=== PATIENT | female | born 1995 | race Caucasian/White ===

== ENCOUNTER → 2018-07-04 | Outpatient (CLI) | payer BC, OTHER | LOC: COL.CARD 12:00 | DX: R00.2 Palpitations (principal) ==

== ENCOUNTER 2021-10-12 08:46 | Inpatient (IN) | payer BC ==
[~2021-10-12] VITALS: Ht 165.1 cm; Wt 99.5 kg
[2021-10-13] VITALS (7 sets, daily range): BP systolic 92–129; BP diastolic 54–79; PULSE 96–107; TEMP 97.8
--- NOTE | 2021-10-13 20:00 | NUR ---
1999- PATIENT AND SPOUSE AMBULATORY TO THE UNIT. ORIENTATED TO ROOM AND CHANGED INTO CLEAN GOWN. PATIENT OF DR FANG WHO IS A AT 39.4 HERE FOR A CYTOTEC INDUCTION. PATIENT REPORTS GFM, DENIES LOF, BLEEDING OR CONTRACTIONS. 2003- EFM AND TOCO ON AND TRACING. VITALS TAKEN, ASSESSMENT COMPLETED. 2009- CONSENTS SIGNED. PLAN OF CARE DISCUSSED AND QUESTIONS ANSWERED. 2024- IV STARTED IN RIGHT HAND, PATIENT TOLERATED WELL. 2029- CYTOTEC PLACED VAGINALLY AT THIS TIME. SVE /-3. PATIENT TOLERATED WELL. DENIES FURTHER QUESTIONS OR NEEDS AT THIS TIME. CALL LIGHT WITHIN REACH.
[2021-10-13] MEDS ORDERED: PRENATAL TABLET PO (20:44)
[2021-10-13 21:26] LABS: BASO % 0.2 % (0.0-2.0); EOS # 0.1 K/mm3 (0.0-0.7); EOS % 0.9 % (0.0-4.0); GRAN # 8.6 K/mm3 (1.4-6.5); GRAN % 79.2 % (42.2-75.2); HEMOGLOBIN 13.9 g/dl (12.5-16.0); LYMPH # 1.6 K/mm3 (1.2-3.4); LYMPH % 14.3 % (20.0-51.0); MEAN CELL VOLUME 86 fl (80.0-100.0); MEAN CORPUSCULAR HEMOGLOBIN 30 pg (27-31); MEAN CORPUSCULAR HGB CONC 35 g/dl (33.0-37.0); MEAN PLATELET VOLUME 12.1 fl (7.4-10.4); MONO # 0.5 K/mm3 (0.1-0.6); MONO % 4.9 % (1.7-9.3); PLATELET COUNT 195 K/mm3 (130-400); RED BLOOD COUNT 4.63 M/mm3 (4.10-5.30); REDCELL DISTRIBUTION WIDTH-CV 13.3 % (11.5-14.5)
[2021-10-14] VITALS (51 sets, daily range): BP systolic 97–194; BP diastolic 54–92; PULSE 74–120; TEMP 98.1–98.8
--- NOTE | 2021-10-14 04:15 | NUR ---
0415- [facility] AND TOCO TAKEN OFF PATIENT. PATIENT TO AMBULATE AND EAT A LIGHT SNACK BEFORE STARTING PITOCIN. PATIENT DENIES FURTHER NEEDS. CALL LIGHT WITHIN REACH.
--- NOTE | 2021-10-14 10:21 | NUR ---
1000 CONTRACTIONS GETTING MUCH MORE INTENSE AT THIS TIME. PATIENT HAVING TO BREATH THROUGH EACH CONTRACTION.
--- NOTE | 2021-10-14 11:14 | NUR ---
1035 DR FANG AT BEDSIDE. SONO TO COMFIRM [facility]. SVE /-3 AROM WITH AMNIOHOOK LARGE AMOUNT OF CLEAR FLUID NOTED. PATIENT US READYFOR EPIDURAL. Luke STEVENS ROOFER AT BEDSIDE FOR EPIDURAL PLACEMENT. PATIENT SITS UP ON EDGE OF BED. SEE ROOFER NOTED FOR QUESTIONS. SINGLE SHOT 1045.
--- NOTE | 2021-10-14 11:18 | NUR ---
1100 PITOCIN DECREASED TO 16 AT THIS TIME. FHT 120 WITH OCCASIONAL LATE AND EARLY. DR FANG CALLED AND UPDATED. NO NEW ORDERS. SVE UNCHANGED
--- NOTE | 2021-10-14 12:01 | NUR ---
1145 FHT DECREASED TO 70 PATIENT REPSOSITIONED TO LEFT SIDE AFTER FLOEY PLACED. BP97/54 EPHEDRINE 10 MG IV GIVEN BY A ISRA RN. PATIENT VOMITS. SVE /0. FHT INCREASED 145. 150 DR FANG CALLED AND UPDATED. ORDERS TO CONTINUE WITH SAME PLAN OF CARE.
--- NOTE | 2021-10-14 14:32 | NUR ---
1230 OCCASIONAL LATES NOTED. PATIENT REPOSITIONED. FHT 150
--- NOTE | 2021-10-14 14:33 | NUR ---
1245 LATE DECELERTIONS NOTED. PATIENT REPOSITIONED TO LEFT SIDE. SVE COMPLETE/100/+1. WILL START PUSHING WITH PATIENT WITH CONTRACTIONS. DR FANG CALLED AND UPDATED ON ALL ABOVE INFORMATION. [id number] WITH DEEP VARIABLES WITH PUSHING. 1300 PUSHING ON LEFT SIDE. PATIENT TOLERATES WELL. 1315 DR FANG AT BEDSIDE TO EVALUATE STRIP AND PUSHING. TALKS WITH PATIENT ABOUT POSSIBLY NEEDIN GTO USE VACUUM FOR DELIVERY. PATIENT UNDERSTANDS. CONTINUE PUSHING ON EACH SIDE FOR 3 P[address]ES[address] FANG AT THIS TIME, PATIENT PUSHES WITH CONTRACTION 1331 VAC DELIVERY BABY GIRL. CORD CLAMPED AND CUT. BABY TO MOMS CHEST AND STIMULATED BY NURSERY NURSE. STRONG CRY NOTED. 1336 PLACENTA DELIVERED AND PITOCIN STARTED AT 333 PER PROTOCOL. FUNDUS FIRM AND BLEEDING WNL. BABY REMAINS ON MOMS CHEST.
[2021-10-15 03:19] VITALS: BP 131/80; PULSE 95; TEMP 98
[2021-10-15 07:50] LABS: HEMOGLOBIN 12.1 g/dl (12.5-16.0)
[2021-10-15 07:53] LABS: HEMATOCRIT 35.9 % (37.0-47.0)
[2021-10-15 09:00] VITALS: BP 125/78; PULSE 92; TEMP 97.5
[2021-10-15] MEDS ORDERED: IBU600 MG PO (09:54)
== END 2021-10-15 16:20 | disposition home or self-care (01) | DRG 807 ==
LOC: LDR 10-13 08:46 → OB 10-14 15:30
PROVIDERS: ADMIT Obstetrics & Gynecology
PROC: 10D07Z6 Extraction of Products of Conception, Vacuum, Via Natural or Artificial Opening (ICD-10-PCS; principal; 2021-10-14)
PROC: 0KQM0ZZ Repair Perineum Muscle, Open Approach (ICD-10-PCS; 2021-10-14)
PROC: 0UQMXZZ Repair Vulva, External Approach (ICD-10-PCS; 2021-10-14)
PROC: 10907ZC Drainage of Amniotic Fluid, Therapeutic from Products of Conception, Via Natural or Artificial Opening (ICD-10-PCS; 2021-10-14)
PROC: 3E0P7VZ Introduction of Hormone into Female Reproductive, Via Natural or Artificial Opening (ICD-10-PCS; 2021-10-14)
PROC: 3E033VJ Introduction of Other Hormone into Peripheral Vein, Percutaneous Approach (ICD-10-PCS; 2021-10-14)
DX: O99.62 Diseases of the digestive system complicating childbirth (principal); Z37.0 Single live birth; K21.9 Gastro-esophageal reflux disease without esophagitis; O99.284 Endocrine, nutritional and metabolic diseases complicating childbirth; E28.2 Polycystic ovarian syndrome; O99.344 Other mental disorders complicating childbirth; F90.9 Attention-deficit hyperactivity disorder, unspecified type; F32.A Depression, unspecified; O76 Abnormality in fetal heart rate and rhythm complicating labor and delivery; O70.1 Second degree perineal laceration during delivery; Z3A.39 39 weeks gestation of pregnancy; Z23 Encounter for immunization
CPT/HCPCS: J2590; J2795; J7120

== ENCOUNTER → 2021-11-08 | Outpatient (CLI) | payer BC ==
[~2021-11-08] MED LIST: AMOXICILLIN 8751 TAB PO; DOXYCYCLINE 10100 MG PO; IBU600 MG PO; LOVENOX 100100 MG/ML SQ; PRENATAL TABLET PO; PROAIR HFA0.09 MG/AC IH; PROBIOTIC ACID1 EAC3 PO; TESSALON P100 MG/CAP PO
--- NOTE | 2021-11-08 15:44 | NUR ---
Pt, Guanako Arizmendi, presents for outpatient Consult with 25 day old baby girl, Deyanira Amin, for evaluation and c/o sore nipples. Deyanira was born by vacuum assisted vaginal delivery on 10/14/2020 and weighed 7#1.6oz (3220 gms). Pt reports Deyanira has been gaining weight WNL, has qs voids and stools, generally BF bilaterally and had tolerated some bottle feeds to give pt's nipples a little respite. Today Deyanira weighs 7#14.7oz (3594 gms). Pt states Deyanira weighed 7#8oz [address] Deyanira to the breast, letting her have a shallow latch, jumping with the latch. LC removes baby from breast and shows pt how to compress areola to get a bigger mouthful. Baby has almost the full areola in so pt can ID landmarks as she moves forward. Pt states latch and not painful. After nursing bilaterally Deyanira has a weight gain of 3.8oz (106 gms). Questions re: pumping, bottle feeding and saving milk answered. POC: Continue using improved latch. F/U: As scheduled with Dr. Valdes. Questions invited and answered.
== END ==
LOC: LAC 11:12
DX: Z39.1 Encounter for care and examination of lactating mother (principal); Z71.89 Other specified counseling

== ENCOUNTER 2021-11-09 22:28 | Inpatient (IN) | payer BC ==
[~2021-11-09] VITALS: Ht 165.1 cm; Wt 97.3 kg
[~2021-11-09 22:28] MED LIST changes: -AMOXICILLIN 8751 TAB PO; -DOXYCYCLINE 10100 MG PO; -LOVENOX 100100 MG/ML SQ; -PROAIR HFA0.09 MG/AC IH; -PROBIOTIC ACID1 EAC3 PO; -TESSALON P100 MG/CAP PO
[2021-11-09 23:11] LABS: BASO % 0.3 % (0.0-2.0); EOS # 0.1 K/mm3 (0.0-0.7); EOS % 0.6 % (0.0-4.0); GRAN # 11.2 K/mm3 (1.4-6.5); GRAN % 79.5 % (42.2-75.2); HEMATOCRIT 37.3 % (37.0-47.0); HEMOGLOBIN 12.2 g/dl (12.5-16.0); LYMPH # 1.5 K/mm3 (1.2-3.4); LYMPH % 10.4 % (20.0-51.0); MEAN CELL VOLUME 90 fl (80.0-100.0); MEAN CORPUSCULAR HEMOGLOBIN 29 pg (27-31); MEAN CORPUSCULAR HGB CONC 33 g/dl (33.0-37.0); MEAN PLATELET VOLUME 11.4 fl (7.4-10.4); MONO # 1.2 K/mm3 (0.1-0.6); MONO % 8.8 % (1.7-9.3); PLATELET COUNT 204 K/mm3 (130-400); RED BLOOD COUNT 4.15 M/mm3 (4.10-5.30); REDCELL DISTRIBUTION WIDTH-CV 13.2 % (11.5-14.5)
[2021-11-09 23:29] LABS: ALBUMIN 3.1 gm/dL (3.5-5.0); BILIRUBIN,TOTAL 0.9 mg/dL (0.2-1.2); CALCIUM 8.5 mg/dL (8.4-10.2); CREATININE, serum 0.75 mg/dL (0.57-1.11); TOTAL PROTEIN 6.8 gm/dL (6.2-8.1)
[2021-11-09 23:57] LABS: COLLECTION METHOD CLEAN CATCH
[2021-11-10 00:10] LABS: PH 6 (5-8); SQUAMOUS EPITHELIAL 0-2 /hpf (0-10); URINE APPEARANCE Clear (CLEAR/HAZY); URINE BACTERIA Rare /hpf (NONE SEEN); URINE BILIRUBIN Negative (NEGATIVE); URINE BLOOD Negative (NEGATIVE); URINE COLOR Yellow (YELLOW); URINE GLUCOSE Negative (NEGATIVE); URINE KETONE Negative (NEGATIVE); URINE LEUKOCYTE ESTERASE 1+ (NEGATIVE); URINE NITRATE Negative (NEGATIVE); URINE PROTEIN(semi-quant) Negative (NEGATIVE); URINE RBC None Seen /hpf (0-2); URINE UROBILINOGEN >=4.0 (NEGATIVE)
--- NOTE | 2021-11-10 05:35 | NUR ---
26 yo female admitted for further care and management of sepsis of unknown etiology but may be secondary to a pulmonary source. ht 165.1 cm wt 86.4 kg SCr 0.75 with estimated CrCl >60 ml/min half life 8.7 hours Plan: Patient received an initial loading dose of vancomycin 2000 mg x1 in the ED (23.1 mg/kg); will follow with a maintenance regimen of vancomycin 1000 mg q8h to target a goal trough of 15-20 mcg/ml. Will follow patient's renal function, micro data, and vancomycin levels as indicated to assess for any necessary changes to regimen. Thank you for this dosing consult.
--- NOTE | 2021-11-10 06:15 | NUR ---
Admitted to medical floor from ER, afebrile at this time- tylenol was given in ER earlier, VSS, has a cough- non productive, robitussin given at this time as ordered,Up to bathroom- steady on feet, voiding large amounts clear yellow urine-urine specimens sent to lab for legionella, and s. pnemoniae,, also nasal swap sent to lab for RVP, pt denies pain, states does have scant vaginal drainage white/green/bloody at times, tele on, has breast pump in room- understands to pump/dump milk due to antibiotics, IV fluid bolus completed-now on IV of NS at 125cc/hr to right A/C IV site, states left AC IV is very, very painful- so it was jackson BRYANT.
[2021-11-10 06:18] LABS: HIV 1/2 Antibodies Non-Reactive; HIV-1p24 Antigen Non-Reactive
[2021-11-10 07:58] VITALS: BP 105/61; PULSE 102; TEMP 98.1
--- NOTE | 2021-11-10 09:09 | NUR ---
Patient laying in bed upon entering the room. Very teary-eyed over not being able to have her 3wk-old in the room. Patient is allowed to have 2 visitors as long as everyone is wearing masks. Patient is A&Ox4, independent. Patient denies any vaginal or chest pain. Does report sore throat from coughing. States that cough is dry and she does not know if she will be able to produce a sputum sample.
[2021-11-10 11:52] VITALS: BP 106/61; PULSE 106; TEMP 102
--- NOTE | 2021-11-10 12:15 | NUR ---
Patient c/o headache, and running a fever. Cold washcloth placed on forehead. PRN tylenol administered.
--- NOTE | 2021-11-10 14:43 | NUR ---
The patient is in airborne precautions. SW contacted the patient to discuss discharge plan. The patient lives in [place] with her fiance, Guanako (ph#[phone]), and their . She reports independence with ADLs and does not have any DME. The patient's PCP is Dr. Cori Steven and she receives her medications from [facility]. The patient does not have a DPOA-HC and she was not interested in completing one at this time. The patient's mother, Purvi Arizmendi (ph#[phone]), is also listed as a person to notify. The patient plans on returning home with her family upon discharge. No additional needs at this time. *Discharge plan: home with family*
--- NOTE | 2021-11-10 14:48 | NUR ---
IV in patient's right AC kinked and occluded. New IV started in the right hand, 20G. IV fluids and ABX remain infusing. Patient tolerating these well. Patient reports relief from headache w/ tylenol.
[2021-11-10 16:20] VITALS: BP 110/65; PULSE 99; TEMP 99.6
[2021-11-10 19:46] VITALS: BP 121/65; PULSE 110; TEMP 99.5
--- NOTE | 2021-11-10 21:00 | NUR ---
Initial shift assessment done- will give Tylenol and cough medicine per patients requests- VSS, temp 99,5, Up to bathroom on own- pumping breast milk and dumping it, IV fluids of NS at 125cc/hr, teary when talking about baby- just wants to be with her, pt in Airborne Isolation to R/O TB. On numerous IV antibiotics
[2021-11-11 00:18] VITALS: BP 116/70; PULSE 95; TEMP 99.2
[2021-11-11 04:23] VITALS: BP 113/70; PULSE 92; TEMP 98.5
--- NOTE | 2021-11-11 06:37 | NUR ---
Quiet night, no changes- VSS, did get Tylenol and cough medicine every 4 hours during the night-
[2021-11-11 07:16] LABS: BASO # 0.1 K/mm3 (0.0-0.2); BASO % 0.5 % (0.0-2.0); EOS # 0.2 K/mm3 (0.0-0.7); EOS % 1.6 % (0.0-4.0); GRAN # 7.8 K/mm3 (1.4-6.5); GRAN % 76.3 % (42.2-75.2); HEMOGLOBIN 11.1 g/dl (12.5-16.0); LYMPH # 1.4 K/mm3 (1.2-3.4); LYMPH % 13.5 % (20.0-51.0); MEAN CELL VOLUME 90 fl (80.0-100.0); MEAN CORPUSCULAR HEMOGLOBIN 29 pg (27-31); MEAN CORPUSCULAR HGB CONC 33 g/dl (33.0-37.0); MEAN PLATELET VOLUME 10.8 fl (7.4-10.4); MONO # 0.8 K/mm3 (0.1-0.6); MONO % 7.5 % (1.7-9.3); PLATELET COUNT 203 K/mm3 (130-400); RED BLOOD COUNT 3.81 M/mm3 (4.10-5.30); REDCELL DISTRIBUTION WIDTH-CV 13.4 % (11.5-14.5)
[2021-11-11 07:20] LABS: HEMATOCRIT 34.1 % (37.0-47.0)
[2021-11-11 07:34] LABS: CALCIUM 7.9 mg/dL (8.4-10.2); CREATININE, serum 0.69 mg/dL (0.57-1.11); POTASSIUM 3.8 mmol/L (3.5-4.5)
[2021-11-11 07:58] VITALS: BP 118/69; PULSE 94; TEMP 98.6
--- NOTE | 2021-11-11 09:57 | NUR ---
Patient sitting up in bed upon entering the room. Patient is A&Ox4, and independent in the room. IV fluids remain infusing, IV antibiotics administered as ordered. Patient tolerating these well. Patient asked about her thoughts on a PICC line; Patient in agreeance w/ getting one if it is needed. Patient has call light w/in reach and has been encouraged to call if any needs arise.
[2021-11-11 11:21] VITALS: BP 103/60; PULSE 101; TEMP 98.9
[2021-11-11 15:23] VITALS: BP 110/65; PULSE 99; TEMP 98.9
[2021-11-11 17:07] LABS: TB GOLD INTERPRETATION Negative (Negative)
[2021-11-11 19:50] VITALS: BP 116/72; PULSE 106; TEMP 98.6
--- NOTE | 2021-11-11 22:28 | NUR ---
Patient asssessed around 2024. Alert and oriented x 4, and able to make needs known. Given PRN Acetaminophen and Robitussin as requested. PICC to E, IV ABX running per orders. Denies having SOB and dyspnea. LS CTA throughout except diminished in RLL. Dry, non-productive cough. HRR-tachy. Telemetry in place. Capillary refill less than 3 seconds. Non-tenting skin turgor. BSAx4. Abdomen soft and non-tender. No edema.
[2021-11-12] VITALS (10 sets, daily range): BP systolic 102–124; BP diastolic 60–77; PULSE 97–105; TEMP 98.2–101.1
--- NOTE | 2021-11-12 06:01 | NUR ---
Patient recieved IV ABX per orders. Given PRN Robitussin and Acetaminophen every 4 hours during the night as requested. Patient reported liquid stools. Called [facility] Mccoy, and GI panel ordered. Sample sent to lab. Reports she started to cough up brown sputum. Given sputum cup to collect sputum. In bed with call light within reach.
[2021-11-12 06:26] LABS: BASO % 0.4 % (0.0-2.0); EOS # 0.4 K/mm3 (0.0-0.7); EOS % 3.9 % (0.0-4.0); GRAN # 8.3 K/mm3 (1.4-6.5); HEMOGLOBIN 11.2 g/dl (12.5-16.0); LYMPH # 1.1 K/mm3 (1.2-3.4); LYMPH % 10.6 % (20.0-51.0); MEAN CELL VOLUME 91 fl (80.0-100.0); MEAN CORPUSCULAR HEMOGLOBIN 29 pg (27-31); MEAN CORPUSCULAR HGB CONC 32 g/dl (33.0-37.0); MEAN PLATELET VOLUME 11.6 fl (7.4-10.4); MONO # 0.7 K/mm3 (0.1-0.6); MONO % 6.7 % (1.7-9.3); PLATELET COUNT 216 K/mm3 (130-400); RED BLOOD COUNT 3.85 M/mm3 (4.10-5.30); REDCELL DISTRIBUTION WIDTH-CV 13.5 % (11.5-14.5)
[2021-11-12 06:34] LABS: CALCIUM 8.3 mg/dL (8.4-10.2); CREATININE, serum 0.66 mg/dL (0.57-1.11); POTASSIUM 3.7 mmol/L (3.5-4.5)
[2021-11-12 06:37] LABS: HEMATOCRIT 35.2 % (37.0-47.0)
--- NOTE | 2021-11-12 14:01 | NUR ---
The patient's mother came out to the nursing station to inform this RN that the patient is feeling worse. This RN went to assess the patient, and the patient did have a temp of 101.7 at this time. The patient was dosed with Tylenol and given some tessalon perles. No other concerns. This RN asked the family to contact us if the patient condition worsens before our next round.
[2021-11-13 00:52] VITALS: BP 97/55; PULSE 105; TEMP 99.3
[2021-11-13 04:45] VITALS: BP 96/65; PULSE 80; TEMP 98.1
--- NOTE | 2021-11-13 06:00 | NUR ---
RESTED THROUGH THE NIGHT WITHOUT INCIDENT. IV ANTIBOTICS. LAB DRAWN PER PICC LINE THIS AM. COUGH SYRUP. AFEBRILE OVERNIGHT. CALL LIGHT WI REACH.
[2021-11-13 06:53] LABS: BASO % 0.4 % (0.0-2.0); EOS # 0.3 K/mm3 (0.0-0.7); EOS % 2.9 % (0.0-4.0); GRAN # 6.7 K/mm3 (1.4-6.5); GRAN % 73.8 % (42.2-75.2); HEMOGLOBIN 10.8 g/dl (12.5-16.0); LYMPH # 1.2 K/mm3 (1.2-3.4); LYMPH % 13.3 % (20.0-51.0); MEAN CELL VOLUME 92 fl (80.0-100.0); MEAN CORPUSCULAR HEMOGLOBIN 29 pg (27-31); MEAN CORPUSCULAR HGB CONC 31 g/dl (33.0-37.0); MEAN PLATELET VOLUME 11.6 fl (7.4-10.4); MONO # 0.9 K/mm3 (0.1-0.6); MONO % 9.4 % (1.7-9.3); RED BLOOD COUNT 3.76 M/mm3 (4.10-5.30); REDCELL DISTRIBUTION WIDTH-CV 13.6 % (11.5-14.5)
[2021-11-13 07:11] LABS: CALCIUM 8.3 mg/dL (8.4-10.2); CREATININE, serum 0.67 mg/dL (0.57-1.11)
--- NOTE | 2021-11-13 07:15 | NUR ---
PT SLEEPING AT THIS TIME.
[2021-11-13 07:21] LABS: HEMATOCRIT 34.5 % (37.0-47.0); PLATELET COUNT 108 K/mm3 (130-400)
--- NOTE | 2021-11-13 07:45 | NUR ---
THE PATIENT IS AWAKE AND ADMINISTERED MEDICATIONS PER MAR. THE PATIENT WAS ASKED IF SHE WOULD LIKE TO TAKE A SHOWER, TO WHICH SHE STATES THAT SHE WOULD LOVE A SHOWER. THE PATIENT'S PICC LINE WAS WRAPPED AND ABX PLACED ON HOLD WHILE PT GETS IN THE SHOWER. THE PATIENT WAS ABOUT TO START 4HR ZOSYN WHICH WOULD DELAY A SHOWER SIGNIFICANTLY. PATIENT IN SHOWER, TELEMETRY ON HOLD, AND WHEN PATIENT GETS OUT OF THE SHOWER, WE WILL PLACE HER BACK ON. NO OTHER CONCERNS AT THIS TIME.
[2021-11-13 07:51] VITALS: BP 97/58; PULSE 113; TEMP 98.6
[2021-11-13 11:38] VITALS: BP 110/59; PULSE 101; TEMP 99.2
[2021-11-13 15:01] VITALS: BP 105/59; PULSE 106; TEMP 100.2
[2021-11-13 20:21] VITALS: BP 103/57; PULSE 108; TEMP 101.4
[2021-11-14 00:19] VITALS: BP 107/63; PULSE 80; TEMP 98.4
--- NOTE | 2021-11-14 04:20 | NUR ---
RESTED BETTER OVERNIGHT WITH COUGH SYRUP W CODIENE. NEEDS ARE MET. PICC LINE LAB DRAW THIS AM.
[2021-11-14 04:32] VITALS: BP 104/56; PULSE 97; TEMP 98.3
[2021-11-14 07:17] LABS: ALBUMIN 2.6 gm/dL (3.5-5.0); BILIRUBIN,TOTAL 0.5 mg/dL (0.2-1.2); CALCIUM 8.4 mg/dL (8.4-10.2); CREATININE, serum 0.71 mg/dL (0.57-1.11); POTASSIUM 4.1 mmol/L (3.5-4.5); TOTAL PROTEIN 6.4 gm/dL (6.2-8.1)
[2021-11-14 07:37] LABS: C-REACTIVE PROTEIN 14.02 mg/dL (0.00-0.50)
[2021-11-14 08:19] VITALS: BP 99/58; PULSE 99; TEMP 98.3
[2021-11-14 08:22] LABS: BASO % 0.4 % (0.0-2.0); EOS # 0.2 K/mm3 (0.0-0.7); EOS % 1.9 % (0.0-4.0); GRAN # 7.2 K/mm3 (1.4-6.5); GRAN % 76.7 % (42.2-75.2); HEMOGLOBIN 10.8 g/dl (12.5-16.0); LYMPH # 1.2 K/mm3 (1.2-3.4); LYMPH % 12.4 % (20.0-51.0); MEAN CELL VOLUME 89 fl (80.0-100.0); MEAN CORPUSCULAR HEMOGLOBIN 29 pg (27-31); MEAN CORPUSCULAR HGB CONC 32 g/dl (33.0-37.0); MEAN PLATELET VOLUME 10.4 fl (7.4-10.4); MONO # 0.8 K/mm3 (0.1-0.6); MONO % 8.2 % (1.7-9.3); RED BLOOD COUNT 3.76 M/mm3 (4.10-5.30); REDCELL DISTRIBUTION WIDTH-CV 13.5 % (11.5-14.5)
[2021-11-14 08:23] LABS: HEMATOCRIT 33.5 % (37.0-47.0); PLATELET COUNT 234 K/mm3 (130-400)
[2021-11-14 12:00] VITALS: BP 105/60; PULSE 98; TEMP 98.6
--- NOTE | 2021-11-14 14:27 | NUR ---
The patient continues to have fevers. She remains on IV antibiotics. SW to monitor as needed. *Discharge plan: home with family*
[2021-11-14 16:31] VITALS: BP 108/65; PULSE 113; TEMP 100
--- NOTE | 2021-11-14 20:00 | NUR ---
Initial shift assessment done- has in room with her with and her mother and friend are caring for baby,, pt states has some soreness to right lung, still has cough- gettig tssalon pearles/Tylenol as needed, VSS, will be NPO after MN for bronchoscopy, tele on, will have some LR at 100cc/hr during the night-
[2021-11-14 20:03] LABS: BLASTOMYCES AB Negative (Negative)
[2021-11-14 20:20] VITALS: BP 105/62; PULSE 105; TEMP 98.5
[2021-11-15] VITALS (12 sets, daily range): BP systolic 89–133; BP diastolic 51–91; PULSE 76–101; TEMP 97.8–98.4
--- NOTE | 2021-11-15 05:39 | NUR ---
Quiet night- did sleep well, LR at 100cc/hr, continues with antibiotics as ordered, Tessalon pearles given x1 tonight for cough- VSS, afebrile.
[2021-11-15 07:03] LABS: BASO % 0.6 % (0.0-2.0); EOS # 0.4 K/mm3 (0.0-0.7); EOS % 5.1 % (0.0-4.0); GRAN # 4.7 K/mm3 (1.4-6.5); GRAN % 65.3 % (42.2-75.2); HEMOGLOBIN 11.1 g/dl (12.5-16.0); LYMPH # 1.4 K/mm3 (1.2-3.4); LYMPH % 19.7 % (20.0-51.0); MEAN CELL VOLUME 90 fl (80.0-100.0); MEAN CORPUSCULAR HEMOGLOBIN 29 pg (27-31); MEAN CORPUSCULAR HGB CONC 32 g/dl (33.0-37.0); MEAN PLATELET VOLUME 10.5 fl (7.4-10.4); MONO # 0.7 K/mm3 (0.1-0.6); PLATELET COUNT 278 K/mm3 (130-400); RED BLOOD COUNT 3.84 M/mm3 (4.10-5.30); REDCELL DISTRIBUTION WIDTH-CV 13.2 % (11.5-14.5)
[2021-11-15 07:05] LABS: HEMATOCRIT 34.4 % (37.0-47.0)
[2021-11-15 07:18] LABS: CALCIUM 8.7 mg/dL (8.4-10.2); CREATININE, serum 0.72 mg/dL (0.57-1.11); POTASSIUM 4.3 mmol/L (3.5-4.5)
--- NOTE | 2021-11-15 07:30 | NUR ---
Pt taken off unit for procedure.
--- NOTE | 2021-11-15 08:46 | NUR ---
PT BROUGHT BACK PROCEDURE.
[2021-11-15] MEDS ORDERED: AMOXICILLIN 8751 TAB PO (13:31)
[2021-11-15] MEDS ORDERED: DOXYCYCLINE 10100 MG PO (13:32)
[2021-11-15] MEDS ORDERED: PROAIR HFA0.09 MG/AC IH (14:02)
[2021-11-15] MEDS ORDERED: PROBIOTIC ACID1 EAC3 PO (14:03)
[2021-11-15] MEDS ORDERED: LOVENOX 100100 MG/ML SQ (14:05)
[2021-11-15] MEDS ORDERED: TESSALON P100 MG/CAP PO (14:06)
--- NOTE | 2021-11-15 16:12 | NUR ---
Discharge education and instructions provided to pt. PICC line removed by EMILY Freed. Questions answered. SILK FOLDER walked pt and family out.
[2021-11-16 07:52] LABS: .HISTOPLASMA ANTIGEN SERUM None Detected (())
[2021-11-18 21:09] LABS: ASPERGILLUS FLAVUS Negative (Neg:<1:1); ASPERGILLUS NIGER Negative (Neg:<1:1)
== END 2021-11-15 16:00 | disposition home or self-care (01) | DRG 776 ==
LOC: COL.ER 22:28 → MEDICAL 11-10 04:26 → SURG 11-14 19:58 → MEDICAL 11-14 19:58
PROVIDERS: Family Medicine; Internal Medicine Pulmonary Disease; Nurse Practitioner Family; Physician Assistant; Student in an Organized Health Care Education/Training Program; ADMIT Student in an Organized Health Care Education/Training Program
PROC: 02HV33Z Insertion of Infusion Device into Superior Vena Cava, Percutaneous Approach (ICD-10-PCS; 2021-11-11)
PROC: 0BBC3ZX Excision of Right Upper Lung Lobe, Percutaneous Approach, Diagnostic (ICD-10-PCS; 2021-11-15)
PROC: 0BBF3ZX Excision of Right Lower Lung Lobe, Percutaneous Approach, Diagnostic (ICD-10-PCS; 2021-11-15)
PROC: 0BDC8ZX Extraction of Right Upper Lung Lobe, Via Natural or Artificial Opening Endoscopic, Diagnostic (ICD-10-PCS; principal; 2021-11-15 07:30)
DX: O85 Puerperal sepsis (principal); E87.2 Acidosis; O99.285 Endocrine, nutritional and metabolic diseases complicating the puerperium; O90.81 Anemia of the puerperium; D64.9 Anemia, unspecified; O99.345 Other mental disorders complicating the puerperium; F32.A Depression, unspecified; F90.9 Attention-deficit hyperactivity disorder, unspecified type; O72.3 Postpartum coagulation defects; D69.6 Thrombocytopenia, unspecified; Z23 Encounter for immunization
CPT/HCPCS: 99223-AI; 99232-AI; 99233-AI; C1751; C1892; J0692; J2543; J2704; J3370; J7030; J7040; J7050; J7120; Q9967

== ENCOUNTER 2024-04-04 06:11 | Inpatient (IN) | payer BC ==
[~2024-04-04] VITALS: Ht 165.1 cm; Wt 100.0 kg
[2024-04-04] VITALS (52 sets, daily range): BP systolic 86–141; BP diastolic 52–92; PULSE 76–150; TEMP 97.8–98
[~2024-04-04 06:11] MED LIST changes: +AMOXICILLIN 8751 TAB PO; +DOXYCYCLINE 10100 MG PO; +LOVENOX 100100 MG/ML SQ; +PROAIR HFA0.09 MG/AC IH; +PROBIOTIC ACID1 EAC3 PO; +TESSALON P100 MG/CAP PO
[2024-04-04] MEDS ORDERED: LR 1,000 ML IV SCH (06:15)
[2024-04-04] MEDS ORDERED: LR & Oxytocin 500 ML IV SCH ×2 (06:15)
--- NOTE | 2024-04-04 06:15 | NUR ---
PT AMBULATORY TO UNIT FOR SCHEDULE IOL, DX:POST DATES. PT MERON CONTRACTIONS, DENIES LOF/VB AND REPORTS POSITIVE MOVEMENT. ORIENTED TO LABOR ROOM AND POC. DENIES QUESTIONS OR CONCERNS AT THIS TIME.
[2024-04-04 07:03] LABS: BASO % 0.3 % (0.0-2.0); EOS % 0.4 % (0.0-4.0); GRAN # 8.5 K/mm3 (1.4-6.5); GRAN % 79.4 % (42.2-75.2); HEMATOCRIT 37.8 % (37.0-47.0); HEMOGLOBIN 12.5 g/dl (12.5-16.0); LYMPH # 1.5 K/mm3 (1.2-3.4); LYMPH % 14.4 % (20.0-51.0); MEAN CELL VOLUME 83 fl (80.0-100.0); MEAN CORPUSCULAR HEMOGLOBIN 28 pg (27-31); MEAN CORPUSCULAR HGB CONC 33 g/dl (33.0-37.0); MEAN PLATELET VOLUME 11.5 fl (7.4-10.4); MONO # 0.5 K/mm3 (0.1-0.6); MONO % 4.9 % (1.7-9.3); PLATELET COUNT 212 K/mm3 (130-400); RED BLOOD COUNT 4.53 M/mm3 (4.10-5.30); REDCELL DISTRIBUTION WIDTH-CV 14.1 % (11.5-14.5)
--- NOTE | 2024-04-04 09:27 | NUR ---
DR FANG AT BEDSIDE, ULTRASOUND PERFORMED, VERTEX PRESENTATION CONFIRMED. SVE /-3, AROM WITH CLEAR FLUID @ 0959. LARGE AMOUNT OF AMNIOTIC FLUID NOTED WITH AROM.
[2024-04-04] MEDS ORDERED: ROPivacaine PF 0.2% 200 ML IV ONE (09:43)
--- NOTE | 2024-04-04 09:54 | NUR ---
ABRAN CASTELLANOS AT BEDSIDE. PT TO SITTING POSITION. LR BOLUS INFUSING. MATERNAL VSS. DIFFICULTY TRACING EFM DUE TO MATERNAL POSITIONING. 0954: TEST DOSE PER EMANUEL OSULLIVAN. PT TOLERATED PROCEDURE WELL.
[2024-04-04] MEDS ORDERED: ePHEDrine 50 MG/10 ML VIAL IV PRN (10:15)
[2024-04-04] MEDS ORDERED: Naloxone 0.4 MG/ML VIAL IV PRN ×2 (10:15→19:45)
[2024-04-04] MEDS ORDERED: diphenhydrAMINE 50 MG/ML 1 ML VIAL IV PRN (10:15)
[2024-04-04] MEDS ORDERED: Ondansetron 4 MG/2 ML VIAL IV PRN (10:15)
[2024-04-04] MEDS ORDERED: diphenhydrAMINE 25 MG CAP PO PRN (10:15)
[2024-04-04] MEDS ORDERED: Chloroprocaine PF 3% (30 MG/ML) 20 ML VIAL ONE (11:16)
--- NOTE | 2024-04-04 13:05 | NUR ---
DR FANG AT BEDSIDE. SVE 9-10/100/-2. FSE PLACED DUE TO RECURRENT DEEP VARIABLES INTO THE 50-60'S. PITOCIN OFF PER VORB.
[2024-04-04] MEDS ORDERED: NS 1,000 ML IV ONE (13:22)
--- NOTE | 2024-04-04 13:22 | NUR ---
1315: IUPC PLACED PER . VORB TO BEGIN AMNIOINFUSION TO ASSIST WITH RECURRENT DEEP VARIABLES. 1322: AMNIOINFUSION INITIATED PER ORDER. 300ML BOLUS OF NS INITIATED VIA IUPC, FOLLOWED BY 100ML/HR BASE RATE PER .
[2024-04-04] MEDS ORDERED: NS 1,000 ML IV SCH (13:30)
--- NOTE | 2024-04-04 13:38 | NUR ---
DR FANG AT BEDSIDE, SVE /-2. AMNIOINFUSION CONTINUES INFUSING PER ORDER.
--- NOTE | 2024-04-04 13:52 | NUR ---
352ML OF CLEAR FLUID ON REMOVED BED PAD FOLLOWING INITIAL 300ML BOLUS OF NS VIA AMNIOINFUSION
--- NOTE | 2024-04-04 14:48 | NUR ---
VARIABLES BEGINNING TO IMPROVE, AT BEDSIDE, VORB TO RESTART PITOCIN THERAPY AT 2MU AND TITRATE PER ORDER.
--- NOTE | 2024-04-04 14:50 | NUR ---
112ML OF CLEAR FLUID ON REMOVED BED PAD, AMNIOINFUSION REMAINS INFUSING PER ORDER.
--- NOTE | 2024-04-04 15:50 | NUR ---
117ML OF CLEAR FLUID ON REMOVED BED PAD AT THIS TIME, AMNIOINFUSION CONTINUES INFUSING PER ORDER.
--- NOTE | 2024-04-04 16:50 | NUR ---
168 ML OF CLEAR FLUID NOTED ON REMOVED BED PAD. AMNIOINFUSION REMAINS INFUSING AT BASE RATE 100ML/HR.
--- NOTE | 2024-04-04 16:56 | NUR ---
DR FANG AT BEDSIDE, SVE /-1, UNABLE TO REDUCE CERVIX WITH PRACTICE PUSH. PT PLACED IN LL STIRRUP TO CONTINUE TO PROGRESS LABOR. PITOCIN REMAINS INFUSING PER ORDER.
--- NOTE | 2024-04-04 17:50 | NUR ---
AMNIOINFUSION STOPPED AT THIS TIME, IUPC REMOVED. AT BEDSIDE COACHING PT WITH PUSHING EFFORTS. EXTERNAL TOCO PLACED BACK ON PT.
--- NOTE | 2024-04-04 18:18 | NUR ---
THIS RN AND COACHING PT THROUGH PUSHING DUE TO PATIENT HAVING AN UNCONTROLLABLE URGE TO PUSH. THIN ANTERIOR LIP REMAINS ON CERVIX, UNABLE TO FULLY REDUCE WITH PUSHING, PT PLACED IN RIGHT LATERAL POSITION TO LABOR DOWN PER VORB . PITOCIN REMAINS INFUSING AT 20MU.
--- NOTE | 2024-04-04 18:20 | NUR ---
Report recieved from Rosalinda DIAZ. at nurses station reviewing FHR strip. 1839: at bedside to assess pt. Pt feeling urge to push. Practice push completed with provider and moves vertex well. Pt prepped for delivery and repositioned into footplates. 1841: Spontaneous delivery of viable male by . to mothers chest where dried and stimulated by nursery RN. Pitocin stopped. 1845: Spontaneous delivery of intact placenta by . Pitocin restarted at 333mu/hr per protocol. Second degree laceration repaired by proivder. Pericare provider , pads changed and pt repositioned in bed. Ice pack applied to perineum. Plan of care and safety precautions explained to pt and spouse who verbalize their understanding.
[2024-04-04] MEDS ORDERED: Loratadine 10 MG TAB PO PRN (19:00)
[2024-04-04] MEDS ORDERED: Acetaminophen 500 MG TAB PO SCH (19:45)
[2024-04-04] MEDS ORDERED: Phenylephrine/Mineral Oil/Petrolatum 57 GM TUBE RC PRN (19:45)
[2024-04-04] MEDS ORDERED: Measles/Mumps/Rubella Virus Vaccine Live w Diluent 0.5 ML VIAL SQ SCH (19:45)
[2024-04-04] MEDS ORDERED: oxyCODONE 5 MG TAB PO PRN (19:45)
[2024-04-04] MEDS ORDERED: Witch Hazel 50% Pads Bulk TUB TP PRN (19:45)
[2024-04-04] MEDS ORDERED: Ibuprofen 600 MG TAB PO SCH (19:45)
[2024-04-04] MEDS ORDERED: Mag/Al Hydrox/Simeth Susp 30 ML CUP PO PRN (19:45)
[2024-04-04] MEDS ORDERED: Magnes Hydrox (MOM) 80 MG/ML 30 ML CUP PO PRN (21:00)
[2024-04-04] MEDS ORDERED: traZODone 50 MG TAB PO PRN (21:00)
[2024-04-05 00:05] VITALS: BP 112/68; PULSE 70; TEMP 98.5
[2024-04-05 03:30] VITALS: BP 114/78; PULSE 81; TEMP 97.9
[2024-04-05] MEDS ORDERED: Sennosides/Docusate 8.6-50 MG TAB PO SCH (08:00)
[2024-04-05] MEDS ORDERED: MOTRIN 600600 MG/TAB PO (08:42)
[2024-04-05 08:52] VITALS: BP 127/97; PULSE 105; TEMP 98.3
[2024-04-05] MEDS ORDERED: Prenatal Vitamins/Iron/FA TAB PO SCH (09:00)
[2024-04-05 15:55] VITALS: BP 119/68; PULSE 97; TEMP 97.7
[2024-04-05 19:27] VITALS: BP 134/83; PULSE 83; TEMP 98
--- NOTE | 2024-04-05 20:00 | NUR ---
1999- DISCHARGE INSTRUCTIONS GIVEN AND QUESTIONS ANSWERED. PT VERBALIZES UNDERSTANDING AND SIGNS PAPERWORK. 2009- DISCHARGED TO HOME ACCOMPANIED BY SPOUSE AND BABY. ESCORTED TO EXIT BY THIS NURSE.
== END 2024-04-05 20:10 | disposition home or self-care (01) | DRG 807 ==
LOC: LDR 06:11 → LDRO 06:34 → EDSTATUS 06:36 → OB 10:23
PROVIDERS: ADMIT Obstetrics & Gynecology
PROC: 10E0XZZ Delivery of Products of Conception, External Approach (ICD-10-PCS; principal; 2024-04-04)
PROC: 0KQM0ZZ Repair Perineum Muscle, Open Approach (ICD-10-PCS; 2024-04-04)
PROC: 3E033VJ Introduction of Other Hormone into Peripheral Vein, Percutaneous Approach (ICD-10-PCS; 2024-04-04)
DX: O70.1 Second degree perineal laceration during delivery (principal); Z37.0 Single live birth; Z3A.40 40 weeks gestation of pregnancy
CPT/HCPCS: J2401; J2405; J2590; J2795; J7030; J7120